=== PATIENT | female | born 1975 | race Hispanic/Latino ===

== ENCOUNTER 2016-12-26 07:42 | Day surgery (SDC) | payer OTHER ==
[2016-12-26 07:48] VITALS: BMI 20.7
[2016-12-26 08:26] LABS: HEMATOCRIT 41.7 % (34.0-47.0); MEAN CELL VOLUME 89.3 fl (81.0-99.0); MEAN CORPUSCULAR HGB CONC 32.5 g/dL (33.0-37.0)
[2016-12-26] MEDS ORDERED: Lactated Ringer's 1,000 ML IV ONE ×3 (09:00→16:30)
[2016-12-26] MEDS ORDERED: ePHEDrine 50 mg/ml Inj ONE (12:53)
[2016-12-26] MEDS ORDERED: Midazolam 2 MG/2 ML VIAL ONE (12:53)
[2016-12-26] MEDS ORDERED: Propofol 10 mg/ml Inj (20 ML) ONE (12:53)
[2016-12-26] MEDS ORDERED: Rocuronium 10 mg/ml (5 ml) ONE (12:54)
[2016-12-26] MEDS ORDERED: Succinylcholine 200 mg/10 ml Inj IV ONE (12:54)
[2016-12-26] MEDS ORDERED: Bupivacaine 0.5% Inj(30mL) ONE (13:01)
[2016-12-26] MEDS ORDERED: Bupivacaine 0.5% 50 ML IJ ONE (14:25)
[2016-12-26] MEDS ORDERED: Neostigmine Methylsulfate 2 MG/2 ML ML IV ONE (14:48)
[2016-12-26] MEDS ORDERED: Neostigmine Methylsulfate 3mg/3ml Syringe IV ONE (14:48)
[2016-12-26] MEDS ORDERED: Lactated Ringer's 1,000 ML IV SCH (15:14)
[2016-12-26] MEDS: HYDROmorphone 0.5 mg/0.5 ml ISec IVP PRN ×2 (15:16→16:10)
[2016-12-26] MEDS ORDERED: HYDROmorphone 0.5 mg/0.5 ml ISec ONE (15:16)
[2016-12-26] MEDS ORDERED: Oxycodone/Acetaminophen 5/325 mg Tab PO PRN (15:38)
[2016-12-26 22:30] VITALS: BP 112/56; PULSE 82; RESP 20; TEMP 98.3; O2SAT 96
--- NOTE | 2017-02-14 13:11 | OP ---
PROCEDURE DATE: 12/26/2016 PREOPERATIVE DIAGNOSES: Dysmenorrhea, dyspareunia, pelvic pain, bladder pain, dysuria, and rule out endometriosis. POSTOPERATIVE DIAGNOSES: Dysmenorrhea, dyspareunia, pelvic pain, bladder pain, dysuria, rule out endometriosis, and pelvic endometriosis. PROCEDURE PERFORMED: Cystoscopy with bilateral ureteral catheterization and injection of dye, a diagnostic hysteroscopy, laparoscopy robotic, excision of endometriosis, and bilateral ureterolysis. SURGEON: Frederick Perez MD RET[employer] PERSONAL BANKER: Bimal Calderon MD ESTIMATED BLOOD LOSS: Minimal. COMPLICATIONS: None. SPECIMENS: Left pelvic side wall endometriosis, right pelvic side wall endometriosis, and posterior cervical endometriosis. INDICATION FOR THE PROCEDURE: The patient is a 41-year-old female with history of significant dysmenorrhea, dyspareunia, pelvic pain, and dysuria. She was evaluated and also had clinical findings suggestive of endometriosis including jacqueline retrocervical tenderness on examination. Prior to her surgery, she was counseled with regards to risks and benefits of the procedure, and the likelihood that the procedure would beneficial and she signed a consent and she was taken to the OR. DESCRIPTION OF PROCEDURE: After adequate anesthesia was obtained, the patient was placed in the dorsal lithotomy position. She was prepped and draped. The surgeon gown and gloved and the patient was also padded extensively in all the areas prone to pressure. A time-out was called and the procedure was started. At this point a cystoscope was inserted into the bladder under direct visualization. Pancystoscopy was performed and attention was paid to both ureteral orifices, which were in a normal anatomical position. The left ureteral orifice was catheterized with a [place] open-ended ureteral catheter. A solution of ICG was then injected for a total of 5 mL into the left ureter. The left ureteral catheter was advanced into the distal ureter. The ureteral catheter was then removed. Attention was then paid to the right ureteral orifice. A ureteral catheter was then advanced to the level of the right distal ureteral of 5 mL of IC green were injected into the right ureter. The ureteral catheter was then removed. The bladder was inspected and noted to be free of tumors, stones, or bleeding sources. The cystoscope was then removed and 16-[place] Bone catheter was placed. At this point, attention was in the vaginal area, where speculum was placed in the vagina. Anterior lip of the cervix was grasped and under visualization the uterus was dilated and hysteroscope was inserted into the uterine cavity. The cavity appeared to be normal in size with the both tubal ostia were visualized. Cervical canal was also inspected and appeared to be normal. At this point, after placing a uterine manipulator in the uterus attention was on the abdomen. An incision was made below the umbilicus and a standard open laparoscopy technique. The abdominal cavity was entered. Under direct visualization additional trocars were inserted into the left upper quadrant, right upper quadrant, and left mid quadrant. The da Jamia Xi robot was brought on to the field and the robot was docked. The instruments were inserted under direct visualization. The procedure was started. There was evidence of endometriosis lesion of both left pelvic side izquierdo, posterior cervix, and right pelvic side wall. Both ovaries appeared to be free of lesions and the fallopian lesions appeared to be normal. At the anterior bladder reflection was normal and the upper abdomen appeared to be normal. At this point, the procedure started first addressing left hand side, where incision was made above the ureters utilizing fluorescence to identify the ureter. After retroperitoneal space was entered and ureter dissected off the progressive dissection was performed excising an area of peritoneum containing erythematous tissue suggestive of endometriosis. At this point, the ureter again was checked utilizing fluorescence to make sure that no damage had been made to the ureter or the vessels. At this point, attention was in the posterior cervical, anterior rectal area, in the rectovaginal area, where an implant of endometriosis was also noticed. An excision of a swath of peritoneum containing endometriosis was also performed with great care to avoid entering the rectum. Attention was then right hand side, where again the ureter was identified utilizing fluorescence. The retroperitoneum was entered above the ureter and the retroperitoneal space was entered. The ureter was progressed and lateralized with great care. At this point the peritoneum was then progressively in a [id number] fashion preserving both vascular and nerve function. An area of peritoneum containing endometriosis was also excised. At this point, she was checked for hemostasis and appeared to be excellent. The da Jamia robot was undocked. The instruments were removed. The abdomen insufflated. Incision was closed in layers with 0 PDS for the fascia and 4-0 for the skin. The instruments were removed from the vagina. We checked for hemostasis and appeared to be excellent. The patient was woken up and taken to recovery room in excellent condition. All tapes and instruments counts are correct. Frederick Perez MD
== END 2016-12-26 21:00 | disposition home or self-care (01) ==
LOC: H.OPSURG 07:42 → H.PEDS 18:00 → H.OPSURG 21:00
PROVIDERS: ATTEND Obstetrics & Gynecology Reproductive Endocrinology
DX: N80.3 Endometriosis of pelvic peritoneum (principal); F32.9 Major depressive disorder, single episode, unspecified; N94.6 Dysmenorrhea, unspecified; N94.10 Unspecified dyspareunia; R39.89 Other symptoms and signs involving the genitourinary system; R10.2 Pelvic and perineal pain
CPT/HCPCS: 36415; 51715; 52005; 58662; 85027; 86850; 86900; 88305; C1729; J0330; J0690; J1170; J2001; J2250; J2405; J2704; J2710; J3010; J7030; J7040; J7120